=== PATIENT | female | born 1960 | race Caucasian/White ===

== ENCOUNTER → 2017-04-11 | Outpatient (CLI) | payer OTHER ==
[~2017-04-11] MED LIST: GABA-826 PO; IBUP-1221 PO; PRAV20TA2 PO
[2017-04-11 14:16] LABS: BLOOD UREA NITROGEN 17 mg/dL (7-18)
[2017-04-11 14:18] LABS: ASPARTATE AMINO TRANSFERASE 14 U/L (15-37)
== END | disposition home or self-care (01) ==
LOC: STAR 12:27
PROVIDERS: ATTEND Urology
DX: Z01.818 Encounter for other preprocedural examination (principal); N13.30 Unspecified hydronephrosis; N20.1 Calculus of ureter
CPT/HCPCS: 36415; 80053; 81003; 87086

== ENCOUNTER → 2018-07-16 | Outpatient (CLI) | payer OTHER ==
[~2018-07-16] MED LIST changes: +OMEP20TA62 PO
[2018-07-16 13:54] LABS: MICROSCOPIC NOT IND
[2018-07-16 13:55] LABS: BASOPHILS # (AUTO) 0.03 x10^3/uL (0-0.1); BASOPHILS % (AUTO) 0 % (0-1); EOSINOPHILS # (AUTO) 0.05 x10^3/uL (0-0.4); EOSINOPHILS % (AUTO) 1 % (1-7); LYMPHOCYTES # (AUTO) 1.97 x10^3/uL (1-3.4); LYMPHOCYTES % (AUTO) 25 % (22-44); MD NO; MEAN CORPUSCULAR HEMOGLOBIN 31.2 pg (27.0-34.8); MEAN CORPUSCULAR HGB CONC 34.5 g/dL (32.4-35.8); MEAN CORPUSCULAR VOLUME 90.3 fL (80-100); MEAN PLATELET VOLUME 8.3 fL (7.4-10.4); MONOCYTES # (AUTO) 0.37 x10^3/uL (0.2-0.8); MONOCYTES % (AUTO) 5 % (2-9); NEUTROPHILS # (AUTO) 5.36 x10^3/uL (1.8-6.8); NEUTROPHILS % (AUTO) 69 % (42-75); PLATELET COUNT 247 x10^3/uL (130-400); RED BLOOD COUNT 4.81 x10^6/uL (3.82-5.3); RED CELL DISTRIBUTION WIDTH 12.9 % (9.6-15.2)
[2018-07-16 14:05] LABS: ANION GAP 7 mmol/L (5-15); CALCIUM 9.1 mg/dL (8.5-10.1); CHLORIDE 103 mmol/L (98-107); CREATININE 0.75 mg/dL (0.55-1.02)
[2018-07-16 14:06] LABS: ALANINE AMINOTRANSFERASE 18 U/L (12-78)
[2018-07-16 14:08] LABS: ALKALINE PHOSPHATASE 62 U/L (45-117); BILIRUBIN,TOTAL 0.4 mg/dL (0.2-1.0); TOTAL PROTEIN 7.2 g/dL (6.4-8.2)
== END | disposition home or self-care (01) ==
LOC: STAR 12:49
PROVIDERS: ATTEND Urology
DX: Z01.818 Encounter for other preprocedural examination (principal); N20.9 Urinary calculus, unspecified
CPT/HCPCS: 36415; 80053; 81003; 85025; 87086

== ENCOUNTER 2018-07-29 12:01 | Day surgery (SDC) | payer OTHER ==
[2018-07-16 15:41] VITALS: BP 105/71
[~2018-07-29] VITALS: Ht 162.6 cm; Wt 70.9 kg
[2018-07-29 12:30] VITALS: BP 105/71
[2018-07-29] MEDS: LACTATED RINGERS 1,000 ML IV SCH (13:11)
[2018-07-29] MEDS ORDERED: FENTANYL PF 250 MCG/5ML ONE (13:39)
[2018-07-29] MEDS ORDERED: MIDAZOLAM 1 MG/ML, 2ML ONE (13:39)
[2018-07-29] MEDS ORDERED: ROCURONIUM 10MG/ML,5ML ONE (13:40)
[2018-07-29] MEDS ORDERED: LIDOCAINE-MPF 2% ,5ML ONE (13:41)
[2018-07-29] MEDS ORDERED: PROPOFOL 10 MG/ML, 20ML ONE (13:41)
[2018-07-29] MEDS ORDERED: DEXAMETHASONE 4 MG/ML, 1ML ONE ×2 (13:42)
[2018-07-29] MEDS ORDERED: ONDANSETRON 2MG/ML, 2ML ONE ×2 (13:42)
[2018-07-29] MEDS ORDERED: CEFAZOLIN 1,000 MG ONE (13:58)
[2018-07-29] MEDS ORDERED: HALOPERIDOL 5 MG/ML IV PRN (14:00)
[2018-07-29] MEDS ORDERED: hydrALAzine 20 MG/ML, 1ML IV PRN (14:00)
[2018-07-29] MEDS ORDERED: OXYcodone 5 MG/5 ML ORAL.SOL UDC PO PRN (14:00)
[2018-07-29] MEDS ORDERED: PROMETHAZINE 25 MG/ML, 1ML IV PRN (14:00)
[2018-07-29] MEDS ORDERED: HYDROmorphone 2 MG/ML, 1ML IVPush PRN (14:00)
[2018-07-29] MEDS ORDERED: DIAZEPAM 5 MG/ML, 2ML IVPush PRN (14:00)
[2018-07-29] MEDS ORDERED: FENTANYL PF 100 MCG/2ML IV PRN (14:00)
[2018-07-29] MEDS ORDERED: MEPERIDINE/PF 25MG/0.5ML IVPush PRN (14:00)
[2018-07-29] MEDS ORDERED: PROMETHAZINE 25 MG/ML, 1ML ONE (15:50)
== END 2018-07-29 17:10 | disposition home or self-care (01) ==
LOC: OUT 12:01
PROVIDERS: ATTEND Urology
DX: N20.0 Calculus of kidney (principal); Z72.89 Other problems related to lifestyle; Z88.8 Allergy status to other drugs, medicaments and biological substances
CPT/HCPCS: 52356; C1758; C2617; J0690; J1100; J2250; J2405; J2550; J2704; J3010; J3490; J7120